=== PATIENT | male | born 1995 | race Caucasian/White ===

== ENCOUNTER 2019-12-17 21:21 | Inpatient (IN) ==
[2019-12-17 22:00] LABS: Basophils % 0.2 %; Bilirubin,Urine Small (Negative); Blood,Urine Negative (Negative); Clarity,Urine Cloudy (Clear); Color,Urine Dark Yellow (Yellow); Eosinophils % 0.2 %; Glucose,Urine (UA) Normal (Normal); Hematocrit 49.1 % (37.5-50.1); Hemoglobin 16.9 g/dL (12.9-16.9); Immature Granulocytes % 0.2 % (0-4); Ketones,Urine 15 mg/dL (Negative); Leukocyte Esterase,Urine Negative (Negative); Lymphocytes # 1.1 K/mcL (0.6-4.6); Lymphocytes % 24.5 %; Mean Corpuscular HGB Conc 34.4 g/dL (31.6-35.5); Mean Corpuscular Hemoglobin 29.5 pg (28.0-33.3); Mean Corpuscular Volume 85.8 fL (83.0-100.0); Mean Platelet Volume 12.1 fL (9.4-12.4); Monocytes # 0.6 K/mcL (0.0-1.3); Neutrophils # 2.7 K/mcL (1.6-8.9); Nitrite,Urine Negative (Negative); Platelet Count 206 K/mcL (140-400); Protein,Urine 100 mg/dL (Neg-Trace); Red Blood Count 5.72 M/mcL (4.19-5.50); Red Cell Distribution Width 12.1 % (11.5-14.5); Segmented Neutrophils % 60.9 %; Specific Gravity,Urine > 1.030 (1.010-1.025); Urobilinogen,Urine Normal (Normal); White Blood Count 4.4 K/mcL (4.3-11.1)
[2019-12-17 22:03] LABS: Bacteria,Urine None Seen per hpf (None-Few); Hyaline Casts,Urine None Seen per lpf (None-Few); RBC,Urine 0-3 per hpf (0-3); Squamous Epithelial Cell,Urine Moderate per lpf (None-Few)
[2019-12-17 22:13] LABS: Amphetamine Screen,Urine Negative ng/mL (Cutoff=1000); Barbiturate Screen,Urine Negative ng/mL (Cutoff=200); Benzodiazepines Screen,Urine Negative ng/mL (Cutoff=200); Cannabinoid Screen,Urine Positive ng/mL (Cutoff = 50); Cocaine Screen,Urine Negative ng/mL (Cutoff= 300); Opiate Screen,Urine Negative ng/mL (Cutoff=300); Phencyclidine Screen,Urine Negative ng/mL (Cutoff=25)
[2019-12-17 22:21] LABS: Acetaminophen < 10 mcg/mL (10-20); BUN/Creatinine Ratio 11 (6-26); Blood Urea Nitrogen 13 mg/dL (6-20); Calcium 10.3 mg/dL (8.6-10.3); Carbon Dioxide 27 mEq/L (23-29); Chloride 100 mEq/L (98-107); Ethanol < 10 mg/dL (Less than 10); Glucose 103 mg/dL (70-105); Osmolality,Calculated 290 (280-300); Potassium 3.2 mEq/L (3.5-5.1); Salicylate < 2.5 mg/dL (15.0-30.0); Sodium 140 mEq/L (136-145); eGFR For African Americans > 60 (> 60); eGFR For Non-African Americans > 60 (> 60)
[2019-12-18] MEDS ORDERED: Acetaminophen 325 MG TABLET PO PRN (01:27)
[2019-12-18] MEDS ORDERED: Haloperidol Lactate 5 MG/ML VIAL IM PRN (01:27)
[2019-12-18] MEDS ORDERED: hydrOXYzine pamoate 25 MG CAPSULE PO PRN (01:27)
[2019-12-18] MEDS ORDERED: *HR* LORazepam 2 MG/ML VIAL IM PRN (01:27)
[2019-12-18] MEDS ORDERED: Mag Hydrox/Al Hydrox/Simeth 30 ML UDC PO PRN (01:27)
[2019-12-18] MEDS ORDERED: traZODone 50 MG TABLET PO PRN (01:27)
[2019-12-18] MEDS ORDERED: *HR* LORazepam 1 MG TABLET PO PRN (01:27)
[2019-12-19 19:25] LABS: Hepatitis B Surface Antigen Nonreactive (Nonreactive)
[2019-12-19 19:56] LABS: Hepatitis B Core IgM Nonreactive (Nonreactive)
[2019-12-19 20:02] LABS: Hepatitis C Virus Antibody Nonreactive (Nonreactive)
[2019-12-19 21:01] LABS: Hepatitis A Antibody IgM Reactive (Nonreactive)
[2019-12-20 09:42] VITALS: BP 102/55
== END 2019-12-20 12:05 | disposition home or self-care (01) | DRG 885 ==
LOC: EMEROOARM 21:21 → 1ANU 12-18 01:01 → SUATTDRO 12-18 01:01 → 1ANU 12-18 01:10
PROVIDERS: ADMIT Psychiatry & Neurology Psychiatry; ATTEND Psychiatry & Neurology Psychiatry

== ENCOUNTER 2020-05-13 00:50 | Inpatient (IN) ==
[2020-05-13 01:33] LABS: Basophils # 0.1 K/mcL (0.0-0.2); Basophils % 0.9 %; Eosinophils # 0.1 K/mcL (0.0-0.6); Eosinophils % 0.6 %; Hematocrit 36.9 % (37.5-50.1); Hemoglobin 12.2 g/dL (12.9-16.9); Immature Granulocytes % 0.1 % (0-4); Lymphocytes # 3.9 K/mcL (0.6-4.6); Lymphocytes % 48.9 %; Mean Corpuscular HGB Conc 33.1 g/dL (31.6-35.5); Mean Corpuscular Hemoglobin 29.6 pg (28.0-33.3); Mean Corpuscular Volume 89.6 fL (83.0-100.0); Mean Platelet Volume 11.1 fL (9.4-12.4); Monocytes # 0.8 K/mcL (0.0-1.3); Monocytes % 10.2 %; Neutrophils # 3.1 K/mcL (1.6-8.9); Platelet Count 242 K/mcL (140-400); Red Blood Count 4.12 M/mcL (4.19-5.50); Red Cell Distribution Width 12.4 % (11.5-14.5); Segmented Neutrophils % 39.3 %
[2020-05-13 01:37] LABS: Bilirubin,Urine Negative (Negative); Blood,Urine Negative (Negative); Clarity,Urine Clear (Clear); Color,Urine Light-Yellow (Yellow); Glucose,Urine (UA) Normal (Normal); Ketones,Urine Negative (Negative); Leukocyte Esterase,Urine Small (Negative); Mucus,Urine Few per lpf (None-Few); Nitrite,Urine Negative (Negative); PH,Urine 5.5 pH Units (5.0-8.0); Protein,Urine Trace mg/dL (Neg-Trace); RBC,Urine 0-3 per hpf (0-3); Specific Gravity,Urine 1.026 (1.010-1.025); Urobilinogen,Urine Normal (Normal); WBC,Urine 15-30 per hpf (0-3)
[2020-05-13 01:46] LABS: Amphetamine Screen,Urine Negative ng/mL (Cutoff=1000); Barbiturate Screen,Urine Negative ng/mL (Cutoff=200); Benzodiazepines Screen,Urine Negative ng/mL (Cutoff=200); Cannabinoid Screen,Urine Positive ng/mL (Cutoff = 50); Cocaine Screen,Urine Negative ng/mL (Cutoff= 300); Opiate Screen,Urine Negative ng/mL (Cutoff=300); Phencyclidine Screen,Urine Negative ng/mL (Cutoff=25)
[2020-05-13 01:46] LABS: Acetaminophen < 10 mcg/mL (10-20); BUN/Creatinine Ratio 12 (6-26); Blood Urea Nitrogen 13 mg/dL (6-20); Calcium 8.9 mg/dL (8.6-10.3); Carbon Dioxide 25 mEq/L (23-29); Chloride 107 mEq/L (98-107); Ethanol < 10 mg/dL (Less than 10); Glucose 117 mg/dL (70-105); Osmolality,Calculated 289 (280-300); Potassium 4.2 mEq/L (3.5-5.1); Salicylate < 2.5 mg/dL (15.0-30.0); Sodium 139 mEq/L (136-145); eGFR For African Americans > 60 (> 60); eGFR For Non-African Americans > 60 (> 60)
[2020-05-13 02:02] LABS: Platelet Estimate Normal (Normal)
[2020-05-13 02:03] LABS: Reactive Lymphocytes Present (Not Present)
[2020-05-13] MEDS ORDERED: *HR* LORazepam 2 MG/ML VIAL IM PRN (03:00)
[2020-05-13] MEDS ORDERED: Mag Hydrox/Al Hydrox/Simeth 30 ML UDC PO PRN (03:00)
[2020-05-13] MEDS ORDERED: Haloperidol Lactate 5 MG/ML VIAL IM PRN (03:00)
[2020-05-13] MEDS ORDERED: MOM Conc 10 ML UD.LIQ PO PRN (03:00)
[2020-05-13] MEDS ORDERED: *HR* LORazepam 1 MG TABLET PO PRN (03:00)
[2020-05-13] MEDS ORDERED: haloperidoL 5 MG TABLET PO PRN (03:00)
[2020-05-13] MEDS ORDERED: hydrOXYzine pamoate 25 MG CAPSULE PO PRN (03:00)
[2020-05-13] MEDS ORDERED: traZODone 50 MG TABLET PO PRN (03:00)
[2020-05-13] MEDS ORDERED: Acetaminophen 325 MG TABLET PO PRN (03:14)
[2020-05-13] MEDS: QUEtiapine Fumarate 25 MG TABLET PO SCH ×2 (09:52→21:22)
[2020-05-14 08:15] LABS: Chol/HDL Ratio 3.8 (0-4.9)
[2020-05-14] MEDS: QUEtiapine Fumarate 25 MG TABLET PO SCH (08:24)
[2020-05-14 08:28] LABS: Thyroid Stimulating Hormone 0.995 mcIU/mL (0.340-5.600)
[2020-05-14 09:54] LABS: Estimated Average Glucose 123 mg/dl; Hemoglobin A1C 5.9 %
[2020-05-14 10:17] VITALS: BP 129/69
== END 2020-05-14 17:42 | disposition home or self-care (01) | DRG 753 ==
LOC: EMEROOARM 00:50 → 1ANU 02:53
PROVIDERS: ADMIT Psychiatry & Neurology Psychiatry; ATTEND Psychiatry & Neurology Psychiatry